=== PATIENT | female | born 1990 | race Caucasian/White ===

== ENCOUNTER → 2023-04-25 10:28 | Outpatient (REF) | payer BC, SELFPAY ==
[2023-04-25 12:01] LABS: % Basophils 0.5 % (0-2); % Eosinophils 2.1 % (0-6); % Immature Granulocytes 0.5 % (0-0.5); % Monocytes 7.4 % (1.7-9.3); % Neutrophils 66.5 % (42.2-75.2); Absolute Eosinophils 0.1 10^3/uL (0-0.7); Absolute Lymphocytes 1.5 10^3/uL (1.2-3.4); Absolute Monocytes 0.5 10^3/uL (0.1-0.6); Absolute Neutrophils 4.4 10^3/uL (1.4-6.5); Hematocrit 35.8 % (37.0-47.0); Hemoglobin 12.5 g/dL (12.0-16.0); Mean Corp Hgb Conc. 34.9 g/dL (33.0-37.0); Mean Corpuscular Hgb 29.9 pg (27.0-31.0); Mean Corpuscular Volume 85.6 fL (81.0-99.0); Mean Platelet Volume 10.2 fL (7.4-10.4); Nucleated Red Blood Cells % 0 %; Platelet Count 270 10^3/uL (130-400); Red Blood Cell Count 4.18 10^6/uL (4.20-5.40); Red Cell Dist. Width 12.6 % (11.5-14.5); White Blood Cell Count 6.6 10^3/uL (4.8-10.8)
[2023-04-25 13:19] LABS: Glycohemoglobin (HgbA1c) 5.3 % (4.0-5.6)
[2023-04-27 14:28] LABS: Rheumatoid Agglutinin Less Than 10 IU (<10 IU)
[2023-04-28 16:43] LABS: Syphilis/T. pallidum Ab Reflex Negative (Negative)
== END ==
LOC: REG 10:28
PROVIDERS: ATTENDING PHYSICIAN Nurse Practitioner Family; FAMILY PHYSICIAN Family Medicine
DX: Z34.90 Encounter for supervision of normal pregnancy, unspecified, unspecified trimester (principal)
CPT/HCPCS: 36415; 83036; 84702; 85025; 86430; 86780; 86900; 86901

== ENCOUNTER → 2023-06-09 14:21 | Outpatient (REF) | payer BC, SELFPAY | LOC: PNTC 14:21 | PROVIDERS: ATTENDING PHYSICIAN Obstetrics & Gynecology | DX: O35.5XX0 Maternal care for (suspected) damage to fetus by drugs, not applicable or unspecified (principal) | CPT/HCPCS: 76801; 76813 ==

== ENCOUNTER → 2023-06-16 14:36 | Outpatient (REF) | payer BC, SELFPAY ==
[2023-06-16 16:01] LABS: Urine Albumin Negative (Neg - Trace); Urine Bilirubin Negative (Negative); Urine Character Clear (Clear); Urine Color Yellow; Urine Glucose Negative (Negative); Urine Ketone Negative (Negative); Urine Leukocyte Trace (Negative); Urine Nitrite Negative (Negative); Urine Occult Blood 1+ (Negative); Urine Urobilinogen Negative (Neg - 1+)
[2023-06-16 16:14] LABS: % Basophils 0.3 % (0-2); % Eosinophils 1.6 % (0-6); % Immature Granulocytes 0.4 % (0-0.5); % Lymphocytes 13.6 % (20.5-51.1); % Monocytes 6.1 % (1.7-9.3); Absolute Eosinophils 0.2 10^3/uL (0-0.7); Absolute Lymphocytes 1.4 10^3/uL (1.2-3.4); Absolute Monocytes 0.6 10^3/uL (0.1-0.6); Hematocrit 33.1 % (37.0-47.0); Hemoglobin 11.2 g/dL (12.0-16.0); Mean Corp Hgb Conc. 33.8 g/dL (33.0-37.0); Mean Corpuscular Hgb 29.7 pg (27.0-31.0); Mean Corpuscular Volume 87.8 fL (81.0-99.0); Mean Platelet Volume 10.4 fL (7.4-10.4); Nucleated Red Blood Cells % 0 %; Platelet Count 276 10^3/uL (130-400); Red Blood Cell Count 3.77 10^6/uL (4.20-5.40); Red Cell Dist. Width 13.5 % (11.5-14.5); Urine Squamous Cell >30 /LPF (Few); White Blood Cell Count 10.2 10^3/uL (4.8-10.8)
[2023-06-16 16:15] LABS: Urine Bacteria Many (Negative)
[2023-06-16 17:01] LABS: Rubella Negative
[2023-06-16 17:23] LABS: Hepatitis C Antibody Negative (Negative)
[2023-06-16 17:39] LABS: Hepatitis B Surface Antigen Negative (Negative)
[2023-06-19 16:53] LABS: Syphilis/T. pallidum Ab Reflex Negative (Negative)
[2023-06-19 18:30] LABS: HIV Combo Negative (Negative)
== END ==
LOC: REG 14:36
PROVIDERS: ATTENDING PHYSICIAN Obstetrics & Gynecology
DX: Z34.90 Encounter for supervision of normal pregnancy, unspecified, unspecified trimester (principal)
CPT/HCPCS: 36415; 80055; 81003; 81015; 86803; 86850; 86900; 86901; 87086; 87389

== ENCOUNTER → 2023-08-06 07:33 | Outpatient (REF) | payer BC, SELFPAY | LOC: PNTC 07:33 | PROVIDERS: ATTENDING PHYSICIAN Obstetrics & Gynecology | DX: O35.5XX0 Maternal care for (suspected) damage to fetus by drugs, not applicable or unspecified (principal) | CPT/HCPCS: 76811 ==

== ENCOUNTER → 2023-10-26 08:07 | Outpatient (REF) | payer BC, SELFPAY | LOC: PNTC 08:07 | PROVIDERS: ATTENDING PHYSICIAN Obstetrics & Gynecology | DX: O99.320 Drug use complicating pregnancy, unspecified trimester (principal) | CPT/HCPCS: 76816 ==

== ENCOUNTER → 2023-11-24 11:08 | Outpatient (REF) | payer BC, SELFPAY ==
[2023-11-24 12:31] LABS: % Basophils 0.5 % (0-2); % Eosinophils 1.1 % (0-6); % Immature Granulocytes 1.6 % (0-0.5); % Lymphocytes 14.5 % (20.5-51.1); % Monocytes 8.5 % (1.7-9.3); % Neutrophils 73.8 % (42.2-75.2); Absolute Basophils 0.1 10^3/uL (0-0.2); Absolute Eosinophils 0.1 10^3/uL (0-0.7); Absolute Immature Granulocytes 0.2 10^3/uL (0-0.05); Absolute Lymphocytes 1.4 10^3/uL (1.2-3.4); Absolute Monocytes 0.8 10^3/uL (0.1-0.6); Absolute Neutrophils 7.3 10^3/uL (1.4-6.5); Hematocrit 31.7 % (37.0-47.0); Hemoglobin 10.6 g/dL (12.0-16.0); Mean Corp Hgb Conc. 33.4 g/dL (33.0-37.0); Mean Corpuscular Hgb 30.5 pg (27.0-31.0); Mean Corpuscular Volume 91.1 fL (81.0-99.0); Mean Platelet Volume 10.6 fL (7.4-10.4); Nucleated Red Blood Cells % 0 %; Platelet Count 216 10^3/uL (130-400); Red Blood Cell Count 3.48 10^6/uL (4.20-5.40); Red Cell Dist. Width 15.6 % (11.5-14.5); White Blood Cell Count 9.8 10^3/uL (4.8-10.8)
== END ==
LOC: REG 11:08
PROVIDERS: ATTENDING PHYSICIAN Obstetrics & Gynecology; FAMILY PHYSICIAN Family Medicine
DX: Z34.83 Encounter for supervision of other normal pregnancy, third trimester (principal)
CPT/HCPCS: 36415; 85025

== ENCOUNTER 2023-12-25 00:30 | Inpatient (IN) | payer BC, SELFPAY ==
[2023-12-25 00:58] VITALS: BP 110/68; BMI 25.3
[2023-12-25] MEDS: LR 1000 IV (01:39)
[2023-12-25 01:53] LABS: % Basophils 0.2 % (0-2); % Eosinophils 1.3 % (0-6); % Immature Granulocytes 1.3 % (0-0.5); % Lymphocytes 18.1 % (20.5-51.1); % Monocytes 8.8 % (1.7-9.3); % Neutrophils 70.3 % (42.2-75.2); Absolute Eosinophils 0.1 10^3/uL (0-0.7); Absolute Immature Granulocytes 0.1 10^3/uL (0-0.05); Absolute Lymphocytes 1.6 10^3/uL (1.2-3.4); Absolute Monocytes 0.8 10^3/uL (0.1-0.6); Absolute Neutrophils 6.3 10^3/uL (1.4-6.5); Hematocrit 32.1 % (37.0-47.0); Hemoglobin 11.1 g/dL (12.0-16.0); Mean Corp Hgb Conc. 34.6 g/dL (33.0-37.0); Mean Corpuscular Hgb 29.5 pg (27.0-31.0); Mean Corpuscular Volume 85.4 fL (81.0-99.0); Nucleated Red Blood Cells % 0 %; Platelet Count 196 10^3/uL (130-400); Red Blood Cell Count 3.76 10^6/uL (4.20-5.40); Red Cell Dist. Width 15.3 % (11.5-14.5)
[2023-12-25] MEDS: STADOL 1 MG IV (03:30)
[2023-12-25] MEDS: PENICILLIN 110 UNITS IV (03:30)
[2023-12-25] MEDS: LUVOX 25 MG PO ×2 (04:00→20:40)
[2023-12-25] MEDS: SUBLIMAZE 100 MCG EPIDURAL (05:32)
[2023-12-25] MEDS: FENTANYL/BUPIVACAINE 100 EPIDURAL (05:32)
[2023-12-25] MEDS: PENICILLIN 55 UNITS IV (07:50)
[2023-12-25] MEDS: METHERGINE INJECTION 0.2 MG IM (11:26)
[2023-12-25] MEDS: PITOCIN 30 UNITS/NSS 500 ML IV (11:27)
[2023-12-25] MEDS: MOTRIN 600 MG PO (20:41)
[2023-12-25] MEDS: TYLENOL 650 MG PO (22:57)
[2023-12-26] MEDS: MOTRIN 600 MG PO ×2 (02:45→16:15)
[2023-12-26 05:37] LABS: Hematocrit 30.6 % (37.0-47.0); Hemoglobin 10.5 g/dL (12.0-16.0)
[2023-12-26] MEDS: PRENATAL PLUS 1 TABLET PO (08:19)
[2023-12-26] MEDS: FEOSOL 325 MG PO (08:36)
[2023-12-26] MEDS: LUVOX 25 MG PO (21:10)
[2023-12-27] MEDS: SENOKOT-S 1 TABLET PO (04:31)
[2023-12-27] MEDS: MOTRIN 600 MG PO (04:31)
[2023-12-27] MEDS: PRENATAL PLUS 1 TABLET PO (08:18)
[2023-12-27] MEDS: FEOSOL 325 MG PO (08:18)
[2023-12-29 11:18] LABS: Syphilis/T. pallidum Ab Reflex Negative (Negative)
== END 2023-12-27 13:15 | disposition home or self-care (01) | DRG 807 ==
LOC: LDRP 00:30
PROVIDERS: Obstetrics & Gynecology; ADMITTING PHYSICIAN Student in an Organized Health Care Education/Training Program; FAMILY PHYSICIAN Family Medicine
PROC: 10E0XZZ Delivery of Products of Conception, External Approach (ICD-10-PCS; 2023-12-25)
DX: O48.0 Post-term pregnancy (principal); Z37.0 Single live birth; Z3A.40 40 weeks gestation of pregnancy; O70.0 First degree perineal laceration during delivery; O99.824 Streptococcus B carrier state complicating childbirth
CPT/HCPCS: 36415; 85014; 85018; 85025; 86780; 86850; 86900; 86901; 90707

== ENCOUNTER → 2024-01-06 13:09 | Outpatient (REF) | payer BC, SELFPAY | LOC: WDC 13:09 | PROVIDERS: ATTENDING PHYSICIAN Obstetrics & Gynecology; FAMILY PHYSICIAN Family Medicine | DX: N61.0 Mastitis without abscess (principal) | CPT/HCPCS: 76642 ==

== ENCOUNTER 2024-02-09 11:28 | Emergency (ER) | payer BC, SELFPAY ==
[2024-02-09 11:33] VITALS: BP 127/82
--- NOTE | 2024-02-09 11:39 | ED.GENMED ---
History of Present Illness
<Crystal Villanueva PA-C - Last Filed: 02/09/24 16:06>
General
Chief Complaint: Crisis Evaluation
Source: patient
Exam Limitations: none
Time Seen by Provider: 02/09/24 11:38
Nursing documentation reviewed up to this point in time: agreed with
History of Present Illness
History of Present Illness:
This is a 33-year-old female with past medical history of OCD, anxiety presents emergency department today with concerns of acute anxiety and obsessive thoughts for the past few weeks following her childbirth 6 weeks ago. Patient reports that she
feels very overwhelmed and has not been sleeping through the night at all. Patient states that she is in tears almost every day. Patient is present here with her digital manager and her digital manager reports that patient has been saying that she wants to 'return'
her baby. Patient herself denies any thoughts or plans to harm the baby, denies any thoughts of suicide but repeatedly states 'I just don't know what to do anymore, I do not want to do this anymore.' She denies homicidal thoughts. Patient is
currently taking Luvox for anxiety and OCD. She has been in a partial program for her anxiety in the past and states that she does not currently have a psychiatrist and her psychiatric medication is managed by her primary care provider. This is
patient's first child and she is a patient of [facility]. She is requesting to see an CLINICAL DOCUMENTATION SPECIALIST as well as to have a psychiatric evaluation. She denies chest pain, shortness of breath, lower extremity edema.
Review of Systems
<Crystal Villanueva PA-C - Last Filed: 02/09/24 16:06>
Review of Systems
All Other Systems: ROS reviewed and negative except as documented in HPI and ROS
Phy Exam
<Crystal Villanueva PA-C - Last Filed: 02/09/24 16:06>
Physical Exam
Physical Exam:
General: Patient is in acute anxious distress but is non-toxic appearing
Skin: Warm and dry, no rashes or lesions
Head: Normocephalic, atraumatic
Eyes: Sclera non-icteric. EOMs intact. PERRLA.
Cardiac: Regular rate
Peripheral Vascular: No lower extremity edema
Pulm: Normal respiratory effort
Neuro: CN II-XII intact, no focal neurologic deficits.
Psychiatric: Good insight and judgement. Memory intact. Denies thoughts of wanting to harm her baby. Denies visual, auditory, tactile hallucinations. Denies HI/SI.
Course
<Crystal Villanueva PA-C - Last Filed: 02/09/24 16:06>
Orders/Labs/Results
Orders:
Orders
02/09/24 11:57
Crisis Consult Urgent
Reason for Consult: mental health crisis/depression
02/09/24 15:21
, Urine Qualitative Screen [HCG, Urine Qualitative Screen] Urgent
Urine Drug Abuse Screen Urgent
Test Result ONCE
02/09/24 15:29
Complete Blood Count/With Diff Urgent
Comprehensive Metabolic Panel Urgent
Abnormal Lab Results
02/09/24
15:29
Glucose 107 H mg/dl
(70-99)
02/09/24 15:29
02/09/24 15:29
Vital Signs
Initial and Last Documented VS:
Initial Vital Signs
Temp Pulse Resp BP Pulse Ox
97.9 F 95 18 127/82 97
02/09/24 11:33 02/09/24 11:33 02/09/24 11:33 02/09/24 11:33 02/09/24 11:33
Last Documented Vital Signs
Temp Pulse Resp BP Pulse Ox
97.9 F 95 18 127/82 97
02/09/24 11:33 02/09/24 11:33 02/09/24 11:33 02/09/24 11:33 02/09/24 11:33
<Amando Rosales DO - Last Filed: 02/09/24 12:59>
Orders/Labs/Results
Orders:
Orders
02/09/24 11:57
Crisis Consult Urgent
Reason for Consult: mental health crisis/depression
02/09/24 15:21
, Urine Qualitative Screen [HCG, Urine Qualitative Screen] Urgent
Urine Drug Abuse Screen Urgent
Test Result ONCE
02/09/24 15:29
Complete Blood Count/With Diff Urgent
Comprehensive Metabolic Panel Urgent
Abnormal Lab Results
02/09/24
15:29
Glucose 107 H mg/dl
(70-99)
02/09/24 15:29
02/09/24 15:29
Vital Signs
Initial and Last Documented VS:
Initial Vital Signs
Temp Pulse Resp BP Pulse Ox
97.9 F 95 18 127/82 97
02/09/24 11:33 02/09/24 11:33 02/09/24 11:33 02/09/24 11:33 02/09/24 11:33
Last Documented Vital Signs
Temp Pulse Resp BP Pulse Ox
97.9 F 95 18 127/82 97
02/09/24 11:33 02/09/24 11:33 02/09/24 11:33 02/09/24 11:33 02/09/24 11:33
<Crystal Villanueva PA-C - Last Filed: 02/09/24 16:06>
MDM/Problems Addressed
Differential Diagnosis Includes:
Generalized anxiety disorder crisis, OCD, depression, psychosis
MDM/Problems Addressed:
This is a 33-year-old female with past medical history of OCD, anxiety presents emergency department today with concerns of acute anxiety and obsessive thoughts for the past few weeks following her childbirth 6 weeks ago. Patient reports that she
feels very overwhelmed and has not been sleeping through the night at all. Patient states that she is in tears almost every day. Patient denies suicidal or homicidal ideation, denies thoughts of wanting to harm her baby. Patient is that she has
good support at home with her . On physical exam, she is an anxious distress, tearful, states that 'she does not know what to do anymore.' I did consult our psychiatrist who evaluated patient and feels that patient is not sure acute
depression or psychosis at this time and feels that patient, if she wants to, can go home and trial medication to help her sleep as well as increase her daily anxiety medication. After patient discussed with her CLINICAL DOCUMENTATION SPECIALIST her ,
patient now feels that inpatient treatment is best for her. Did discuss this with crisis. Patient was initially concerned about having a roommate, we did try to find a facility that does not have roommates however this was not possible. Patient
eventually agreeable to inpatient treatment despite having a roommate. Patient referred for patient treatment, facility requiring CBC CMP as well as urine drug screen and
Chronic conditions affecting care:
Anxiety, OCD
<Crystal Villanueva PA-C - Last Filed: 02/09/24 16:06>
*Pulse Oximetry
Patient hypoxic: no
*Critical Care Note
Total Time (30-74mins, 75-104mins- exclusive of procedures): Not Applicable
Data Reviewed
Review of Other/Old Records Reveals: Records (Reviewed previous notes, no previous ER physician documentation to review)
Source: patient and records
Prescriptions/Medications Considered But Not Given:
n/a
<Crystal Villanueva PA-C - Last Filed: 02/09/24 16:06>
Patient Management
Escalation/DeEscalation of care consider admission/obs:
Patient referred for inpatient psychiatric treatment
ED Attending Note
<Crystal Villanueva PA-C - Last Filed: 02/09/24 16:06>
-
Portions of this chart may have been created with voice recognition software.� Occasional wrong word or��sound alike� substitutions may have occurred due to the inherent limitations of voice recognition software.
<Amando Rosales, DO - Last Filed: 02/09/24 12:59>
ED Attending Note
Patient seen and examined by attending physician: Yes
I performed the substantive portion of visit, reviewed & personally made and approve the management plan that is documented in note by myself or IZABELA.: Yes
ED Attending Note:
Patient presents for help with anxiety, insomnia, OCD. Patient is 6 weeks . She endorses a history of anxiety and OCD which had been well-controlled with Luvox. She was in a partial program up until 2 years ago. However since bringing
the baby home she has been feeling like she is losing control. She denies any suicidal homicidal ideations. She denies any alcohol or drug use.
General: Awake, Alert, Oriented X3. Tearful but thought is organized and she is interactive.
Vitals: unremarkable
Head: Atraumatic
Eyes: Pupils equal, EOMI
Throat: Airway intact, no exudates
Neck: Trachea midline
Lungs: Clear and equal b/l
Heart: Regular rate, no murmurs
Neuro: Nonfocal
Skin: Warm, dry, no rash
Extremities: pulses equal b/l, no edema
Crisis consult, discussed with SECURITY INSTALLER
Discharge Plan
Departure
Patient Disposition: Psych Facility
Date of Disposition: 02/09/24
Time of Disposition: 15:56
Patient with high blood pressure during this ER visit?: Yes
Condition: Good
Discharge Problem:
Anxiety
Prescriptions:
No Action
Luvox
25 mg PO DAILY
Vitamin
1 tab PO DAILY
iron
1 tab PO DAILY
acetaminophen 325 mg Tablet
650 mg PO Q4HPRN PRN (Reason: mild pain) Qty: 0 0RF
sennosides-docusate sodium 8.6-50 mg Tablet
1 tab PO DAILYPRN PRN (Reason: constipation) Qty: 0 0RF
ibuprofen 600 mg Tablet
600 mg PO Q6HPRN PRN (Reason: moderate pain/cramps) Qty: 40 0RF
Referrals:
Rd Samayoa MD [Family Provider] -
Interventions
Interventions:
*Risk Screen - Suicide Last Done: 02/09/24 11:30
*General Assessment Last Done: 02/09/24 12:18
*Neglect/Abuse Screening Last Done: 02/09/24 11:37
ED- Fall Risk Assessment Last Done: 02/09/24 12:18
*ED COVID-19 Vaccine History Last Done: 02/09/24 11:37
ED-Psychological Assessment Last Done: 02/09/24 12:18
Discharge Date and Time
Print Language: KINYARWANDA
[2024-02-09 12:18] VITALS: BMI 21.3
--- NOTE | 2024-02-09 13:47 | CS.PSYCHR ---
Consult Summary - Psychiatry
-
Pt is a 33 yo female, presenting with acute anxiety and sleep deprivation 6 weeks post-. Pt has support of and mounted police, who was present during the interview. Pt states she is 'spiraling' with her anxiety and OCD, cannot cope at home,
feeling overwhelmed, states she just can't do it. Pt has hx of OCD with excess checking. She denies suicidal or homicidal ideation. When asked about her baby, pt states 'she's great', denies any disturbing thoughts or concerns about her baby. Pt
tries to sleep around her baby's schedule, but cannot relax or fall asleep, over-thinks and feels more stressed. Pt reports existing Luvox was increased from 25 mg to 50 mg HS by her PCP 2 to 3 weeks ago. Pt was also prescribed Ativan 1 mg, with
limited benefit.
Psych Hx: OCD, anxiety, attended PHP 2 years ago, no hx of inpatient tx. Pt tried Trazodone in the past and stayed up all night. She has taken Klonopin 0.5 mg HS in the past
SH: lives with and 6-week old dtr; no hx of substance use
MSE: alert, oriented, affect tearful and overwhelmed, labile. Mood dysphoric/distressed. Speech coherent, thought goal-directed, no signs of psychosis. Denies S/H ideation. Insight fair. Pt feels overwhelmed about returning home with a sleep
med, but is fearful of going to a facility and being away from
Imp: OCD, anxiety, sleep deprivation and exhaustion 6 weeks post-
R/o post- depression, no signs of psychosis
Rec: pt needs to start getting sleep to return to usual functioning and manage her background OCD as well caring for her baby
Agree with increased Luvox- needs several weeks to see the clinical benefit
Discussed the options of inpatient psych placement, reviewed with Crisis staff, pt to discuss with
Would try Ambien 5 to 10 mg HS for insomnia, could also add Remeron 7.5 to 15 mg or Seroquel 25 to 50 mg HS; would not recommend combining Ambien with a benzo, which could increase the risk of side effects
--- NOTE | 2024-02-09 15:23 | CON.MD ---
Consultation - Medical
-
Consult:
HPI: Patient is a 33yo s/p on 12/24. She has a history of OCD and is taking Luvox. She reports she has been having increased OCD and anxiety over the last few weeks and has not been able to sleep. She states it has been gradually getting
worse. She does not have thoughts of harming herself or baby but does say that she has thoughts of giving the baby away. She says she 'can't do this anymore' and does not see a way out of it or getting better. Patient requested to speak to OB. She
was evaluated by Crisis and Psych and given the option for inpatient treatment. She does not think she can go home the way she is feeling. She is meeting all milestones and has her visit scheduled for tomorrow. Lochia stopped.
She recently stopped . She is tolerating a regular diet, but has a decreased appetite.
ROS negative unless otherwise noted in the HPI.
PMHx: OCD
Meds: Luvox
Surghx: wisdom teeth
All: keflex (hives)
Socialhx: denies tobacco, etoh or illicit drug use
Famhx: non-contributory
Objective:
VSS
General: tearful, overwhelmed
Cardio: regular
Pulm: no increased work of breathing
: deferred
A/P: 33yo s/p on 12/24, presents with OCD, anxiety and possible depression
- From OB perspective, patient is meeting all PP milestones. No OB intervention at this time
- Patient is considering inpatient treatment, but has worries about a roommate while inpatient. Patient is likely going to choose inpatient treatment. She does not feel that she can go home the way she is or do an outpatient intensive treatment
- Crisis to find placement for patient
- She was scheduled for a visit tomorrow, which was cancelled. She will call the office to reschedule
[2024-02-09 15:50] LABS: ALT (SGPT) 26 U/L (0-35); AST (SGOT) 24 U/L (14-36); Albumin 4.6 g/dl (3.5-5.0); Alkaline Phosphatase 75 U/L (38-126); Blood Urea Nitrogen 15 mg/dl (7-17); Calcium 9.6 mg/dl (8.4-10.2); Carbon Dioxide 24 mmol/L (22-30); Chloride 105 mmol/L (98-107); Estimated Creatinine Clearance 105 ml/min; Glucose 107 mg/dl (70-99); Potassium 3.8 mmol/L (3.5-5.1); Sodium 143 mmol/L (135-145); Total Bilirubin 0.5 mg/dl (0.2-1.3); Total Protein 7.3 g/dl (6.3-8.2); eGFR > 60.00
[2024-02-09 15:51] LABS: % Basophils 0.7 % (0-2); % Eosinophils 2.6 % (0-6); % Immature Granulocytes 0.4 % (0-0.5); % Lymphocytes 23.3 % (20.5-51.1); % Monocytes 6.8 % (1.7-9.3); % Neutrophils 66.2 % (42.2-75.2); Absolute Basophils 0.1 10^3/uL (0-0.2); Absolute Eosinophils 0.2 10^3/uL (0-0.7); Absolute Lymphocytes 1.6 10^3/uL (1.2-3.4); Absolute Monocytes 0.5 10^3/uL (0.1-0.6); Absolute Neutrophils 4.6 10^3/uL (1.4-6.5); Hematocrit 41.7 % (37.0-47.0); Hemoglobin 14.5 g/dL (12.0-16.0); Mean Corp Hgb Conc. 34.8 g/dL (33.0-37.0); Mean Corpuscular Hgb 30.3 pg (27.0-31.0); Mean Corpuscular Volume 87.2 fL (81.0-99.0); Mean Platelet Volume 9.8 fL (7.4-10.4); Nucleated Red Blood Cells % 0 %; Platelet Count 275 10^3/uL (130-400); Red Blood Cell Count 4.78 10^6/uL (4.20-5.40); White Blood Cell Count 6.9 10^3/uL (4.8-10.8)
[2024-02-09 16:30] LABS: HCG, Urine Qualitative Screen Negative
[2024-02-09 16:45] LABS: Amphetamines Negative (Negative); Barbiturates Negative (Negative); Benzodiazepines Positive (Negative); Buprenorphine Negative (Negative); Cocaine Negative (Negative); Marijuana Negative (Negative); Methadone Negative (Negative); Methamphetamines Negative (Negative); Opiates Negative (Negative); Phencyclidine Negative (Negative); Tricyclic Antidepressants Negative (Negative)
[2024-02-09 17:05] LABS: Fentanyl, Urine Negative (Negative)
== END 2024-02-09 17:10 ==
LOC: EMR 11:28
PROVIDERS: Physician Assistant; EMERGENCY PHYSICIAN Emergency Medicine; FAMILY PHYSICIAN Family Medicine
DX: O99.345 Other mental disorders complicating the puerperium (principal); F42.9 Obsessive-compulsive disorder, unspecified; F41.9 Anxiety disorder, unspecified; Z72.820 Sleep deprivation; Z79.899 Other long term (current) drug therapy
CPT/HCPCS: 99285; 80053; 80306; 80307; 81025; 85025